=== PATIENT | female | born 1940 | race Caucasian/White ===

== ENCOUNTER 2017-11-26 07:22 | Emergency (ER) | payer MEDICARE ==
--- NOTE | 2017-11-26 08:01 | UC ---
Upper Extremity HPI - HPI Summary HPI Summary: TRIP[facility]. HAS PAIN MID/PROXIMAL HUMERUS. DENIES ELBOW OR SHOULDER PAIN. - History of Current Complaint Chief Complaint: UCUpperExtremity Stated Complaint: S/P FALL RIGHT ARM INJURY Time Seen by Provider: 11/26/17 07:52 Hx Obtained From: Patient Onset/Duration: Sudden Onset, Lasting Hours, Still Present Severity Initially: Moderate Severity Currently: Moderate Pain Intensity: 7 Pain Scale Used: 0-10 Numeric Character: Sharp Aggravating Factor(s): Movement Alleviating Factor(s): Nothing Associated Signs And Symptoms: Positive: Negative Related History: Dominant Hand Left - Allergies/Home Medications Allergies/Adverse Reactions: Allergies Allergy/AdvReac Type Severity Reaction Status Date / Time No Known Allergies Allergy Verified 11/26/17 07:39 Home Medications: Home Medications Anastrozole (NF) [Arimidex (NF)] 1 mg PO DAILY 11/26/17 [History Confirmed 11/26] Atorvastatin* [Lipitor 10 MG*] 10 mg PO DAILY 11/26/17 [History Confirmed ] Cholecalciferol TAB* [Vitamin D TAB*] 4,000 units PO DAILY 11/26/17 [History Confirmed 11/26/17] Losartan/Hydrochlorothiazide [Losartan-Hctz 100-12.5 mg Tab] 1 tab PO DAILY [History Confirmed 11/26/17] PMH/Surg Hx/FS Hx/Imm Hx Cardiovascular History: Hypertension Cancer History: Breast Cancer - Surgical History Surgical History: Yes Surgery Procedure, Year, and Place: cataracts to the Right Eye done about 3 years ago in July. lumpectomy - Family History Known Family History: Positive: Hypertension - Social History Alcohol Use: None Substance Use Type: None Smoking Status (MU): Never Smoked Tobacco Have You Smoked in the Last Year: No Review of Systems Constitutional: Negative Skin: Negative Respiratory: Negative Cardiovascular: Negative Gastrointestinal: Negative Musculoskeletal: Decreased ROM, Myalgia All Other Systems Reviewed And Are Negative: Yes Physical Exam Triage Information Reviewed: Yes Appearance: Well-Appearing, No Pain Distress, Well-Nourished Vital Signs: Initial Vital Signs Temp 98.6 F 11/26/17 07:41 Pulse 99 11/26/17 07:41 Resp 16 11/26/17 07:41 BP 182/91 11/26/17 07:41 Pulse Ox 100 11/26/17 07:41 Vital Signs Reviewed: Yes Eyes: Positive: Conjunctiva Clear ENT: Positive: Hearing grossly normal Neck: Positive: Supple Respiratory: Positive: No respiratory distress, No accessory muscle use Cardiovascular: Positive: Pulses Normal Abdomen Description: Positive: Soft Musculoskeletal: Positive: No Edema, ROM Limited @ - RIGHT SHOULDER, Other: - TTP PROXIMAL HUMERUS. PALPABLE STEP-OFF GH FOSSA Neurological: Positive: Alert Psychological: Positive: Age Appropriate Behavior Skin: Negative: rashes Diagnostics - Radiology RIGHT HUMERUS XRAY Xray Interpretation: Positive (See Comments) - ANTERIOR-INFERIOR SHOULDER DISLOCATION Radiology Interpretation Completed By: Radiologist Upper Extremity Course/Dx - Differential Dx/Diagnosis Provider Diagnoses: ANTERIOR-INFERIOR RIGHT SHOULDER DISLOCATION - Physician Notification/Consults Discussed Patient Care With: Hi Marcano - TO [facility] ED BY PRIVATE CAR Time Discussed With Above Provider: 08:40 Instructed by Provider To: MD Will See In ED Discharge - Sign-Out/Discharge Documenting (check all that apply): Patient Departure All imaging exams completed and their final reports reviewed: Yes - Discharge Plan Condition: Stable Disposition: TRANS HIGHER LVL OF CARE FAC Patient Education Materials: Shoulder Dislocation (ED) Referrals: Herminia Sams PA [Primary Care Provider] - If Needed Additional Instructions: GO DIRECTLY TO [facility] ED FOR SHOULDER REDUCTION. NOTHING TO EAT OR DRINK. - Billing Disposition and Condition Condition: STABLE Disposition: Trans Higher Lvl of Care Fac
--- NOTE | 2017-11-26 08:14 | RAD ---
HISTORY: FALL, PAIN MID/PROX HUMERUS COMPARISONS: None VIEWS: 2 , Frontal internal rotation and external rotation views of the right humerus FINDINGS: BONE DENSITY: Normal. BONES: There is no displaced fracture. JOINTS: There is no arthropathy. ALIGNMENT: There is anterior-inferior dislocation of the humeral head with respect to glenoid fossa. SOFT TISSUES: Unremarkable. OTHER FINDINGS: None. IMPRESSION: RIGHT SHOULDER DISLOCATION.
[2017-11-26 08:55] VITALS: BP 152/90
== END 2017-11-26 08:55 | disposition short-term general hospital (02) ==
LOC: UCCORT 07:22
DX: S43.004A Unspecified dislocation of right shoulder joint, initial encounter (principal); W19.XXXA Unspecified fall, initial encounter; Y93.9 Activity, unspecified; Y92.9 Unspecified place or not applicable; I10 Essential (primary) hypertension; Z85.3 Personal history of malignant neoplasm of breast
CPT/HCPCS: 99212; G0463

== ENCOUNTER 2018-09-01 08:19 | Emergency (ER) | payer MEDICARE ==
[2018-09-01 08:38] VITALS: BP 160/77
[2018-09-01] MEDS ORDERED: Tetan/Diph/Pertus SYR(Tdap)* 0.5 ML SYR(BOOSTRIX) use SYR IM ONE (09:00)
[2018-09-01] MEDS ORDERED: Amoxicillin/Clavulanate TAB* 875 MG PO ONE (09:00)
--- NOTE | 2018-09-01 09:05 | ED ---
Bite Injury/Animal - HPI Summary HPI Summary: 78 yr old female with dog bite to right index finger. her own dog bit her when she was picking it up. Its shots are up to date. The patient has some mild redness over the PIP of the 2nd digit right hand. She has no restriction on range of motion. - History of Current Complaint Chief Complaint: UCSkin Stated Complaint: DOG BITE-RT INDEX FINGER Time Seen by Provider: 09/01/18 08:38 Pain Intensity: 0 - Allergies/Home Medications Allergies/Adverse Reactions: Allergies Allergy/AdvReac Type Severity Reaction Status Date / Time No Known Allergies Allergy Verified 09/01/18 08:38 PMH/Surg Hx/FS Hx/Imm Hx Previously Healthy: Yes Endocrine/Hematology History: Denies: Hx Diabetes, Hx Systemic Lupus Erythematosus Cardiovascular History: Reports: Hx Hypertension, Other Cardiovascular Problems/ Disorders - 04/2013 Dx with extra Heartbeat. Denies: Hx Congestive Heart Failure Respiratory History: Denies: Hx Asthma History: Reports: Other Problems/Disorders - 08/2015 DR HEWITT: HAD HEMATURIA, STATES ALL OK Denies: Hx Dialysis, Hx Renal Disease Musculoskeletal History: Denies: Hx Rheumatoid Arthritis Sensory History: Reports: Hx Cataracts - BILATERAL, Hx Contacts or Glasses - READING Opthamlomology History: Reports: Hx Cataracts - BILATERAL, Hx Contacts or Glasses - READING - Cancer History Cancer Type, Location and Year: breast 2016 Hx Chemotherapy: No - Surgical History Surgery Procedure, Year, and Place: cataracts to the Right Eye done about 3 years ago in July. lumpectomy Hx Anesthesia Reactions: No Infectious Disease History: No Infectious Disease History: Denies: History Other Infectious Disease, Traveled Outside the [place] in Last 30 Days - Family History Known Family History: Positive: Hypertension - Social History Occupation: Retired Alcohol Use: None Substance Use Type: Reports: None Smoking Status (MU): Never Smoked Tobacco Have You Smoked in the Last Year: No Review of Systems Constitutional: Negative Positive: Other - right index finger dog bite All Other Systems Reviewed And Are Negative: Yes Physical Exam Triage Information Reviewed: Yes Vital Signs On Initial Exam: Initial Vitals Temp Pulse Resp BP Pulse Ox 98.5 F 98 20 160/77 100 09/01/18 08:34 09/01/18 08:34 09/01/18 08:34 09/01/18 08:34 09/01/18 08:34 Vital Signs Reviewed: Yes Appearance: Positive: Well-Appearing, No Pain Distress Head/Face: Positive: Normal Head/Face Inspection Eyes: Positive: EOMI Neck: Positive: Nontender Respiratory/Lung Sounds: Positive: Clear to Auscultation, Breath Sounds Present Cardiovascular: Positive: RRR, Pulses are Symmetrical in both Upper and Lower Extremities Abdomen Description: Negative: Distended Musculoskeletal: Positive: Strength/ROM Intact, Other - right index finger with puncture wounds, She has intact ROM and tendon strength right hand, and intact sensation digital nerves. The wounds are closed as it is a day old. No joint effusion. There is mild cellulitis over the PIP right index finger. Neurological: Positive: Sensory/Motor Intact, Alert, Oriented to Person Place, Time, CN Intact II-III Psychiatric: Positive: Normal - Eyad Coma Scale Best Eye Response: 4 - Spontaneous Best Motor Response: 6 - Obeys Commands Best Verbal Response: 5 - Oriented Coma Scale Total: 15 Diagnostics - Vital Signs Vital Signs Temp Pulse Resp BP Pulse Ox 09/01/18 08:34 98.5 F 98 20 160/77 100 - Laboratory Lab Statement: Any lab studies that have been ordered have been reviewed, and results considered in the medical decision making process. - Radiology right index finger Radiology Interpretation Completed By: Radiologist - negative finger xray Bite Injury Course/Dx - Course Course Of Treatment: 78 yr old with dog bite to finger. Neg xray. Rx with augmentin for ten days. FU with Hand surgery. - Diagnoses Provider Diagnosis: Dog bite, Cellulitis, Hypertension Discharge - Sign-Out/Discharge Documenting (check all that apply): Patient Departure All imaging exams completed and their final reports reviewed: Yes - Discharge Plan Condition: Good Disposition: HOME Prescriptions: Amoxicillin/Clavulanate TAB* [Augmentin TAB 875*] 875 mg PO BID #20 tab Patient Education Materials: Animal Bite (ED), Cellulitis (ED) Referrals: Herminia Sams PA [Primary Care Provider] - 1 Day Pantera Mckenzie MD [Medical Doctor] - 1 Day - Billing Disposition and Condition Condition: GOOD Disposition: Home
== END 2018-09-01 09:51 | disposition home or self-care (01) ==
LOC: UCCORT 08:19
DX: L03.011 Cellulitis of right finger (principal); W54.0XXA Bitten by dog, initial encounter; Y92.9 Unspecified place or not applicable; I10 Essential (primary) hypertension
CPT/HCPCS: 73140; 90471; 90715; 99212; A9270-GY; G0463